=== PATIENT | male | born 1965 | race Caucasian/White ===

== ENCOUNTER 2018-03-12 07:44 | Day surgery (SDC) | payer BC, OTHER ==
[2018-03-09 13:31] VITALS: BMI 39.1
[~2018-03-12 07:44] MED LIST: DEXAMETHASONE SOD PHOSPHATE 10 MG/ML 1 ML VIAL IV ONE; HEPARIN SODIUM,PORCINE 5,000 UNIT/ML 1 ML VIAL SQ ONE; HYDROmorphone 1 MG/ML 1 ML SYRINGE IVP PRN; LACTATED RINGERS 1,000 ML IV SCH; MIDAZOLAM 2 MG/2 ML VIAL IV PRN; ONDANSETRON 4 MG/2 ML VIAL IVP ONE; SCOPOLAMINE 1.5MG/72HR PATCH TRANSDERM ONE; ceFAZolin IN SWFI 2 GM/20 ML SYRINGE IVP ONE
[2018-03-12 07:58] VITALS: RESP 16
[2018-03-12] MEDS ORDERED: LIDOCAINE 1% 20 ML VIAL (10MG/ML) FOR IV START INTRADERMA ONE (08:08)
[2018-03-12] MEDS ORDERED: BUPIVACAINE (PF) 0.25% 30 ML VIAL SQ ONE (09:36)
[2018-03-12] MEDS ORDERED: LIDOCAINE 1% INJ 10MG/ML (20 ML MDV) ONE (09:37)
[2018-03-12] MEDS ORDERED: SUCCINYLCHOLINE CHLORIDE 100 MG/5 ML SYR IV ONE (09:37)
[2018-03-12] MEDS ORDERED: MIDAZOLAM 2 MG/2 ML VIAL ONE (09:37)
[2018-03-12] MEDS ORDERED: PROPOFOL 10 MG/ML 20 ML VIAL IV ONE (09:37)
[2018-03-12] MEDS ORDERED: fentaNYL (PF) 50 MCG/ML 2 ML AMP ONE (09:37)
[2018-03-12] MEDS ORDERED: NEOSTIGMINE 1 MG/ML 10 ML VIAL ONE (09:37)
[2018-03-12] MEDS ORDERED: GLYCOPYRROLATE 0.2 MG/ML 2 ML VIAL ONE (09:37)
[2018-03-12] MEDS ORDERED: HYDROmorphone (PF) 1 MG/ML ONE (09:37)
[2018-03-12] MEDS ORDERED: ROCURONIUM BROMIDE 10 MG/ML 10 ML VIAL IV ONE (09:37)
[2018-03-12] MEDS ORDERED: LACTATED RINGERS 1,000 ML IV ONE (10:42)
[2018-03-12] MEDS ORDERED: HYDROcodone/APAP 5-325MG 1 EACH TAB PO PRN (11:18)
[2018-03-12] MEDS ORDERED: NALOXONE 0.4 MG/ML 1 ML VIAL IV PRN (11:18)
[2018-03-12 11:25] VITALS: TEMP 97.1
[2018-03-12 12:59] VITALS: BP 112/75; PULSE 102
--- NOTE | 2018-03-12 15:40 | P.OP ---
Date of Procedure: 03/12/18 Procedure(s) Performed: PREOPERATIVE DIAGNOSIS: Incarcerated incisional hernia, reducible umbilical hernia POSTOPERATIVE DIAGNOSIS: Same PROCEDURE: Incarcerated incisional hernia repair with mesh, umbilical herniorrhaphy with mesh, partial omentectomy SURGEON: Fernanda KHAN: Minimal ANESTHESIA: Gen. COMPLICATIONS: None OPERATIVE PROCEDURE: Patient placed on the operating table in the supine position. Abdomen was prepped and draped in usual sterile fashion. The previous incision at the epigastrium was re-incised and lengthened slightly. Dissection through the subcutaneous tissues took place using electrocautery. A large hernia was identified. The hernia sac was carefully dissected down to the level of the fascia where it was excised. The omentum present within the hernia was partially excised using the LigaSure device. The 4.3 cm ventral ex mesh was placed beneath the fascia and sutured to the fascia using trans- fascial 0 Ethibond sutures. The defect size here was 1.3 cm. The defect was then closed horizontally using [id number] 0 Ethibond sutures. The subcutaneous tissues were closed using 3-0 Vicryl sutures. The skin was then closed using 4-0 Monocryl running suture. Skin glue was later applied. The umbilical site was then approached. A small curvilinear incision was made around the umbilicus in the right lateral location. The hernia sac was fully dissected. The umbilical attachments were freed. The hernia sac was excised. The defect size was 1.8 cm. The ventral ex mesh was again chosen 4.3 cm. This was placed beneath the fascia and sutured again to the fascia using trans- fascial 0 Ethibond sutures. The defect was closed horizontally using figure-of- eight 0 Ethibond sutures. The umbilicus was tacked back down to the fascial closure using 3-0 Vicryl sutures. The saphenous tissues were closed using 3-0 Vicryl sutures. The skin was closed using interrupted 4-0 Monocryl sutures. Skin glue was applied to both locations. Sterile dressings were applied. DISPOSITION: Stable to recovery room
== END 2018-03-12 13:22 | disposition home or self-care (01) ==
LOC: OR 07:44
PROVIDERS: ATTEND Surgery
DX: K43.0 Incisional hernia with obstruction, without gangrene (principal); K42.9 Umbilical hernia without obstruction or gangrene
CPT/HCPCS: 88302; 49561; 49568; 49585; C1781; J2250; J1644; J1100; J2710; J2405; J2001; J3010; J1170; J0330; J2704; J0690

== ENCOUNTER → 2020-12-11 | Outpatient (CLI) | payer BC ==
--- NOTE | 2020-12-11 12:19 | MR ---
EXAMINATION TYPE: MR cervical spine wo/w con DATE OF EXAM: 12/11/2020 COMPARISON: None HISTORY: Cervical radiculopathy, pain down left arm and tingling in fingers x 2 months TECHNIQUE: Multiplanar, multisequence images of the cervical spine were acquired utilizing 11.5 mL intravenous G adavist gadolinium contrast. Diffusion weighted imaging was performed. C2-C3: Uncovertebral joint hypertrophy with degenerative disc disease. No canal stenosis or disc celeste iation. Facet arthropathy with mild left foraminal encroachment. C3-C4: Degenerative disc disease with posterior spondylosis and uncovertebral joint hypertrophy. Face t arthropathy with mild bilateral foraminal encroachment. No canal stenosis or disc herniation. C4-C5: Degenerative disc disease with facet arthropathy. Mild uncovertebral joint hypertrophy. Mild r ight-sided foraminal encroachment. No canal stenosis or disc herniation. C5-C6: Degenerative disc disease with uncovertebral joint hypertrophy and broad-based central left pa racentral disc bulging. Moderate bilateral foraminal encroachment greater on the left. Borderline to mild central stenosis. C6-C7: Degenerative disc disease with broad-based disc protrusion capped by spur. Facet arthropathy a nd uncovertebral joint hypertrophy. Severe left foraminal encroachment and moderate right foraminal e ncroachment and mild central stenosis. C7-T1: No evidence for degenerative disc disease. No disc bulge/herniation or protrusion. No Canal stenosis. Foramina are patent bilaterally. Cervical segments are intact. There is normal alignment. Cervical spinal cord is of normal signal. Craniovertebral junction relationships are within normal limits. IMPRESSION: 1. Multilevel degenerative disc disease with hypertrophic spurring and facet arthropathy. Multilevel canal stenosis and foraminal encroachment as discussed above.
== END | disposition home or self-care (01) ==
LOC: RADMRIMAIN 09:15
PROVIDERS: ATTEND Family Medicine
DX: M48.02 Spinal stenosis, cervical region (principal); M50.323 Other cervical disc degeneration at C6-C7 level; M50.223 Other cervical disc displacement at C6-C7 level; M12.88 Other specific arthropathies, not elsewhere classified, other specified site
CPT/HCPCS: 72156; A9585

== ENCOUNTER → 2022-01-06 | Outpatient (CLI) | payer BC | END | disposition home or self-care (01) | LOC: LABWHC1 10:09 | PROVIDERS: ATTEND Urology | DX: N40.0 Benign prostatic hyperplasia without lower urinary tract symptoms (principal) | CPT/HCPCS: 36415; 84153 ==

== ENCOUNTER → 2022-01-06 | Outpatient (CLI) | payer BC ==
--- NOTE | 2022-01-06 11:27 | US ---
EXAMINATION TYPE: US scrotum with doppler. Grayscale and color Doppler Duplex imaging performed of mi weems scrotum. DATE OF EXAM: 01/06/2022 COMPARISON: NONE CLINICAL HISTORY: N45.1 EPIDIDYMITIS. Left testicle pressure, right testicle swelling EXAM MEASUREMENTS: TESTICLES: Right Testicle: 4.7 x 2.5 x 3.2 cm Left Testicle: 4.3 x 2.5 x 2.7 cm EPIDIDYMIS HEAD: Right Epididymis: 1.3 cm Left Epididymis: 1.4 cm Doppler performed to assess for testicular vascularity; good bilateral color flow and waveforms are s een. There is no evidence of testicular torsion. There is a intratesticular vessel consistent with varicocele noted on the left. Presence of hydroceles: right 2.9cm Presence of varicoceles: no IMPRESSION: 1. No evidence for testicular torsion. 2. 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 3. Right hydrocele
== END | disposition home or self-care (01) ==
LOC: RADUSWWP 10:19
PROVIDERS: ATTEND Urology
DX: I86.1 Scrotal varices (principal); Q53.9 Undescended testicle, unspecified; N43.3 Hydrocele, unspecified; K57.20 Diverticulitis of large intestine with perforation and abscess without bleeding
CPT/HCPCS: 76870; 93975